=== PATIENT | male | born 1955 | race Caucasian/White ===

== ENCOUNTER → 2017-04-01 | Outpatient (CLI) | payer OTHER ==
[2017-04-01 09:15] LABS: ADD MAN DIFF? NO
[2017-04-01 09:32] LABS: BASO % 1 % (0-3); EOS # 0.1 x10^3/uL (0.0-0.7); EOS % 3 % (0-3); HEMATOCRIT 44.5 % (39.0-53.0); HEMOGLOBIN 14.8 g/dL (13.0-17.5); LYMPH # 1.3 x10^3/uL (1.0-4.8); LYMPH % 47 % (24-48); MEAN CORPUSCULAR HEMOGLOBIN 32 pg (25-35); MEAN CORPUSCULAR HGB CONC 33 g/dL (31-37); MEAN CORPUSCULAR VOLUME 95 fL (79-100); MONO # 0.3 x10^3/uL (0.0-1.1); MONO % 12 % (0-9); NEUT % 37 % (31-73); PLATELET COUNT 200 x10^3/uL (140-400); RED BLOOD COUNT 4.68 x10^6/uL (4.30-5.70); RED CELL DISTRIBUTION WIDTH 13.2 % (11.5-14.5); WHITE BLOOD COUNT 2.8 x10^3/uL (4.0-11.0)
[2017-04-01 09:41] LABS: PARTIAL THROMBOPLASTIN TIME 27 SEC (24-38); PROTHROMBIN TIME PATIENT 12.8 SEC (11.7-14.0)
[2017-04-01 09:46] LABS: ALBUMIN 3.5 g/dL (3.4-5.0); ANION GAP 7 (6-14); BLOOD UREA NITROGEN 11 mg/dL (8-26); CALCIUM 8.4 mg/dL (8.5-10.1); CARBON DIOXIDE 30 mmol/L (21-32); CHLORIDE 105 mmol/L (98-107); CREATININE 0.9 mg/dL (0.7-1.3); GFR 85.2; GLUCOSE 109 mg/dL (70-99); POTASSIUM 3.8 mmol/L (3.5-5.1); SODIUM 142 mmol/L (136-145)
[2017-04-01 10:27] LABS: SEDIMENTATION RATE 4 (0-15)
[2017-04-01 12:24] LABS: BILIRUBIN,URINE NEGATIVE (NEG); CLARITY,URINE CLEAR; COLOR,URINE YELLOW; GLUCOSE,URINE NEGATIVE (NEG); NITRITE,URINE NEGATIVE (NEG); PROTEIN,URINE NEGATIVE (NEG-TRACE)
[2017-04-01 12:34] LABS: BACTERIA,URINE 0 /HPF (0-FEW); RBC,URINE 0 /HPF (0-2); WBC,URINE 0 /HPF (0-4)
[2017-04-01 21:09] LABS: MRSA BY PCR Negative (Negative)
== END | disposition home or self-care (01) ==
LOC: SURGPAT 12:46
DX: Z01.818 Encounter for other preprocedural examination (principal); I10 Essential (primary) hypertension
CPT/HCPCS: 36415; 71046; 80048; 81001; 82040; 85025; 85610; 85651; 85730; 87641; 93005

== ENCOUNTER 2017-04-16 06:12 | Inpatient (IN) | payer OTHER ==
[2017-04-16] MEDS ORDERED: MORPHINE SULFATE 2 MG/ML DISP.SYRIN. IV ×2 (07:00→08:00)
[2017-04-16] MEDS ORDERED: ONDANSETRON PF 4 MG/2 ML VIAL. IV (07:00)
[2017-04-16] MEDS ORDERED: HYDROmorphone 2 MG/ML VIAL IV (07:00)
[2017-04-16] MEDS ORDERED: PROCHLORPERAZINE 10 MG/2 ML VIAL. IV ×2 (07:00→08:00)
[2017-04-16] MEDS ORDERED: fentaNYL PF VIAL 100 MCG/2 ML VIAL IV ×3 (07:00→08:00)
[2017-04-16] MEDS ORDERED: LIDOCAINE 1% PF 2 ML VIAL. ID (07:00)
[2017-04-16] MEDS ORDERED: PROPOFOL 20 ML IV (07:03)
[2017-04-16] MEDS ORDERED: LIDOCAINE 2% PF Vial for OR 5 ML VIAL. (07:03)
[2017-04-16] MEDS ORDERED: fentaNYL PF VIAL 100 MCG/2 ML VIAL ×2 (07:03→08:53)
[2017-04-16] MEDS: IV RINGERS,LACTATED 1000ML 1,000 ML IV ×2 (07:07→11:02)
[2017-04-16] MEDS: CELECOXIB 200 MG CAPSULE. PO ×2 (07:11→20:27)
[2017-04-16] MEDS: HYDROcodone/APAP 7.5/325MG 1 TAB TABLET PO ×3 (07:11→20:28)
[2017-04-16 07:53] LABS: PARTIAL THROMBOPLASTIN TIME 28 SEC (24-38); PROTHROMBIN TIME PATIENT 12.5 SEC (11.7-14.0)
[2017-04-16] MEDS ORDERED: DEXAMETHASONE SOD PHOS 20 MG/5 ML VIAL. (07:59)
[2017-04-16] MEDS ORDERED: SEVOFLURANE > 120 MINUTES. IH (07:59)
[2017-04-16] MEDS ORDERED: traMADol 50 MG TABLET PO ×2 (08:00)
[2017-04-16] MEDS ORDERED: CALCIUM CARBONATE 500 MG TAB.CHEW PO (08:00)
[2017-04-16] MEDS ORDERED: diphenhydrAMINE 50 MG/ML VIAL IV (08:00)
[2017-04-16] MEDS ORDERED: 0.9 % SODIUM CHLORIDE 10 ML DISP.SYRIN. IV (08:00)
[2017-04-16] MEDS ORDERED: ZOLPIDEM 5 MG TABLET. PO (08:00)
[2017-04-16] MEDS ORDERED: oxyCODONE/APAP 5/325 1 TAB TABLET PO (08:00)
[2017-04-16] MEDS ORDERED: DEXTROSE 50% 25 GM / 50ML DISP.SYRIN. IV (08:00)
[2017-04-16] MEDS ORDERED: ACETAMINOPHEN 325 MG TABLET. PO (08:00)
[2017-04-16] MEDS ORDERED: HYDROcodone/APAP 10/325 1 TAB TABLET PO (08:00)
[2017-04-16] MEDS ORDERED: MORPHINE SULFATE 4 MG/ML DISP.SYRIN. IV (08:00)
[2017-04-16] MEDS ORDERED: oxyCODONE/APAP 7.5/325 1 TAB TABLET PO (08:00)
[2017-04-16] MEDS ORDERED: ePHEDrine PF IN SALINE 50 MG/5 ML DISP.SYRIN IV (08:11)
[2017-04-16] MEDS: MORPHINE SULFATE 5 MG, KETOROLAC 30 MG, ROPIVacaine 0.5% PF 60 ML, EPINEPHrine 0.5 MG i... INT ART (08:21)
[2017-04-16] MEDS: TRANEXAMIC ACID 1,000 MG in IV NS 50ML -- 1ST BAG INJ (08:23)
[2017-04-16] MEDS ORDERED: ONDANSETRON PF 4 MG/2 ML VIAL. (08:24)
[2017-04-16] MEDS: TRANEXAMIC ACID 1,000 MG in IV NS 50ML -- 2ND BAG INJ (09:54)
[2017-04-16] MEDS: fentaNYL PF VIAL 100 MCG/2 ML VIAL IV ×2 (10:58→11:10)
[2017-04-16] MEDS: ceFAZolin SODIUM IV Push 1 GM VIAL. IVP ×2 (12:44→21:58)
[2017-04-16] MEDS ORDERED: ceFAZolin SODIUM 1 GM in IV DEXTROSE 5% 50 ML IV (14:00)
[2017-04-16] MEDS: WARFARIN 7.5 MG TABLET. PO (16:33)
[2017-04-16] MEDS: FERROUS SULFATE 325 MG TABLET. PO (16:34)
[2017-04-16] MEDS: KETOROLAC 30 MG, BUPIVACAINE MPF 0.25% 20 ML, EPINEPHrine 0.5 MG in TOTAL VOLUME SYRING... INT ART (17:08)
[2017-04-16] MEDS: IV DEXTROSE 5 %-0.45 % NACL 1,000 ML IV ×2 (18:53→21:00)
[2017-04-17 05:14] LABS: HEMATOCRIT 32.7 % (39.0-53.0); HEMOGLOBIN 10.9 g/dL (13.0-17.5); MEAN CORPUSCULAR HGB CONC 33 g/dL (31-37)
[2017-04-17 05:29] LABS: INR 1.3 (0.8-1.1); PROTHROMBIN TIME PATIENT 15.5 SEC (11.7-14.0)
[2017-04-17] MEDS: KETOROLAC 30 MG, BUPIVACAINE MPF 0.25% 20 ML, EPINEPHrine 0.5 MG in TOTAL VOLUME SYRING... INT ART (05:35)
[2017-04-17] MEDS: ceFAZolin SODIUM IV Push 1 GM VIAL. IVP (05:35)
[2017-04-17] MEDS ORDERED: MAGNESIUM HYDROXIDE 2,400 MG/30 ML ORAL.SUSP. PO (06:00)
[2017-04-17] MEDS: PANTOPRAZOLE 40 MG TABLET.DR. PO (06:52)
[2017-04-17] MEDS: FERROUS SULFATE 325 MG TABLET. PO ×2 (08:03→16:49)
[2017-04-17] MEDS: CELECOXIB 200 MG CAPSULE. PO ×2 (08:03→20:55)
[2017-04-17] MEDS: HYDROcodone/APAP 7.5/325MG 1 TAB TABLET PO ×4 (08:04→20:55)
[2017-04-17] MEDS: SENNOSIDES/DOCUSATE 8.6/50MG TABLET. PO (08:04)
[2017-04-17] MEDS: MULTIVITAMIN with MINERAL TABLET. PO (08:04)
[2017-04-17] MEDS: hydroCHLOROthiazide 25 MG TABLET PO (08:04)
[2017-04-17] MEDS ORDERED: BISACODYL 10 MG SUPP.RECT. PR (16:00)
[2017-04-17] MEDS: WARFARIN 5 MG TABLET. PO (16:49)
[2017-04-18] MEDS: PANTOPRAZOLE 40 MG TABLET.DR. PO (05:21)
[2017-04-18] MEDS: HYDROcodone/APAP 7.5/325MG 1 TAB TABLET PO ×4 (05:22→20:35)
[2017-04-18 05:47] LABS: HEMATOCRIT 36.1 % (39.0-53.0); HEMOGLOBIN 12.1 g/dL (13.0-17.5); MEAN CORPUSCULAR HGB CONC 34 g/dL (31-37)
[2017-04-18 05:57] LABS: INR 1.4 (0.8-1.1); PROTHROMBIN TIME PATIENT 16.7 SEC (11.7-14.0)
[2017-04-18] MEDS: CELECOXIB 200 MG CAPSULE. PO ×2 (08:08→20:30)
[2017-04-18] MEDS: FERROUS SULFATE 325 MG TABLET. PO ×2 (08:08→16:44)
[2017-04-18] MEDS: MULTIVITAMIN with MINERAL TABLET. PO (08:09)
[2017-04-18] MEDS: SENNOSIDES/DOCUSATE 8.6/50MG TABLET. PO (08:09)
[2017-04-18] MEDS: hydroCHLOROthiazide 25 MG TABLET PO (11:00)
[2017-04-18] MEDS: WARFARIN 5 MG TABLET. PO (16:43)
[2017-04-19 05:22] LABS: INR 1.5 (0.8-1.1); PROTHROMBIN TIME PATIENT 17.2 SEC (11.7-14.0)
[2017-04-19] MEDS: PANTOPRAZOLE 40 MG TABLET.DR. PO (06:26)
[2017-04-19 07:21] LABS: MEAN CORPUSCULAR HGB CONC 33 g/dL (31-37)
[2017-04-19] MEDS: CELECOXIB 200 MG CAPSULE. PO (08:11)
[2017-04-19] MEDS: SENNOSIDES/DOCUSATE 8.6/50MG TABLET. PO (08:11)
[2017-04-19] MEDS: FERROUS SULFATE 325 MG TABLET. PO (08:11)
[2017-04-19] MEDS: MULTIVITAMIN with MINERAL TABLET. PO (08:11)
[2017-04-19] MEDS: hydroCHLOROthiazide 25 MG TABLET PO (08:11)
[2017-04-19] MEDS: HYDROcodone/APAP 7.5/325MG 1 TAB TABLET PO ×2 (08:20→12:53)
[2017-04-19] MEDS: WARFARIN 6 MG TABLET. PO (14:42)
== END 2017-04-19 15:33 | disposition home or self-care (01) | DRG 468 ==
LOC: OPSVCIP 06:12 → 4 SOUTHEST 11:56
PROC: 0SRD0J9 Replacement of Left Knee Joint with Synthetic Substitute, Cemented, Open Approach (ICD-10-PCS; principal; 2017-04-16 07:30)
PROC: 0SPD0JZ Removal of Synthetic Substitute from Left Knee Joint, Open Approach (ICD-10-PCS; 2017-04-16 07:30)
DX: T84.84XA Pain due to internal orthopedic prosthetic devices, implants and grafts, initial encounter (principal); I10 Essential (primary) hypertension; M25.562 Pain in left knee; K21.9 Gastro-esophageal reflux disease without esophagitis
CPT/HCPCS: 36415; 73560; 85014; 85018; 85610; 85730; 86850; 86900; 86901; 88304; 88311; 97116-GP; 97150-GP; 97162-GP; 97166-GO; 97530-GP; 97535-GO; C1713; J0171; J0690; J1100; J1885; J2270; J2405; J2704; J2795; J3010; J3490; J7120

== ENCOUNTER → 2018-06-02 | Outpatient (CLI) | payer OTHER ==
[2017-04-19 11:30] VITALS: BP 114/72
[~2018-06-02] MED LIST: CALC200T3 PO; HYDR50TA6 PO; OMEP20TA8 PO
[2018-06-02 21:24] LABS: BF CLARITY CLOUDY; BF COLOR YELLOW; BF SOURCE SYNOVIAL; BF WBC COUNT 75 /cmm (Not Established)
[2018-06-02 21:25] LABS: BF MON % 100 %; BF OTHER % 0 %; BF PMN % 0 %; BF RBC COUNT 1555 /cmm (Not Established)
== END | disposition home or self-care (01) ==
LOC: SPEC 16:28
PROVIDERS: ATTEND Orthopaedic Surgery
DX: M25.562 Pain in left knee (principal); Z96.652 Presence of left artificial knee joint
CPT/HCPCS: 87071; 87075; 89050